=== PATIENT | female | born 1970 | race Caucasian/White ===

== ENCOUNTER 2019-08-17 19:49 | Emergency (ER) | payer OTHER ==
[2019-08-17 20:35] LABS: ABSOLUTE EOSINOPHILS # (AUTO) 0.2 10^3/uL (0.0-0.6); ABSOLUTE LYMPHOCYTES (AUTO) 3.3 10^3/uL (0.5-4.7); ABSOLUTE MONOCYTES (AUTO) 0.7 10^3/uL (0.1-1.4); ABSOLUTE NEUT (AUTO) 4.8 10^3/uL (1.7-8.2); BASOPHILS % (AUTO) 0.5 % (0-2); EOSINOPHILS % (AUTO) 2.3 % (0-6); HEMATOCRIT 39.8 % (36.0-47.0); HEMOGLOBIN 13.7 g/dL (12.0-15.5); LYMPHOCYTES % (AUTO) 36.7 % (13-45); MEAN CORPUSCULAR HEMOGLOBIN 33.5 pg (27.0-33.4); MEAN CORPUSCULAR HGB CONC 34.3 g/dL (32.0-36.0); MEAN CORPUSCULAR VOLUME 98 fl (80-97); MONOCYTES % (AUTO) 7.8 % (3-13); PLATELET COUNT 326 10^3/uL (150-450); RED BLOOD COUNT 4.07 10^6/uL (3.72-5.28); RED CELL DISTRIBUTION WIDTH 14.1 % (11.5-14.0); SEGMENTED NEUTROPHILS % (AUTO) 52.7 % (42-78); TOTAL CELLS COUNTED % (AUTO) 100 %; WHITE BLOOD COUNT 9.1 10^3/uL (4.0-10.5)
[2019-08-17 20:48] LABS: ALBUMIN 4.4 g/dL (3.5-5.0); ALCOHOL 97 mg/dL (NONE DETECTED); ALKALINE PHOSPHATASE 79 U/L (38-126); ANION GAP 12 (5-19); ASPARTATE AMINO TRANSFERASE 22 U/L (14-36); BILIRUBIN,TOTAL 0.2 mg/dL (0.2-1.3); BLOOD UREA NITROGEN 8 mg/dL (7-20); CALCIUM 9.8 mg/dL (8.4-10.2); CARBON DIOXIDE 17 mmol/L (22-30); CHLORIDE 116 mmol/L (98-107); GLUCOSE 123 mg/dL (75-110); POTASSIUM 3.9 mmol/L (3.6-5.0); TOTAL PROTEIN 7.3 g/dL (6.3-8.2)
[2019-08-17 20:49] LABS: APPEARANCE,URINE CLEAR; BILIRUBIN,URINE NEGATIVE (NEGATIVE); COLOR,URINE STRAW; GLUCOSE, URINE NEGATIVE (NEGATIVE); KETONES,URINE NEGATIVE (NEGATIVE); LEUKOCYTE ESTERASE,URINE NEGATIVE (NEGATIVE); NITRITE,URINE NEGATIVE (NEGATIVE); PROTEIN,URINE NEGATIVE (NEGATIVE); URINE SPECIFIC GRAVITY 1.005; UROBILINOGEN,URINE NEGATIVE mg/dL (<2.0)
[2019-08-17 20:50] LABS: ADD MANUAL MICROSCOPIC YES
[2019-08-17 20:50] LABS: ACETAMINOPHEN < 10 ug/mL (10-30); SALICYLATE < 1.0 mg/dL (2.0-20.0)
[2019-08-17] MEDS ORDERED: NORMAL SALINE 1000 ML 1,000 ML IV ONE ×2 (20:53→21:01)
[2019-08-17] MEDS ORDERED: ACETAMINOPHEN 325 MG TABLET PO ONE (21:01)
[2019-08-17] MEDS ORDERED: LORAZEPAM INJ 2 MG/1 ML VIAL IV ONE ×2 (21:01→22:10)
--- NOTE | 2019-08-17 21:03 | ER Document Report ---
ED Psych Disorder / Suicide <EMETERIO GRIFFIN - Last Filed: 08/18/19 09:04> - Related Data Home Medications: baclofen. robaxin. gabapentin. venlafaxine. ziprasidone. mirtazapine. iprasidone <IVANA DAVILA - Last Filed: 08/18/19 10:58> - General Chief Complaint: Overdose Stated Complaint: OVERDOSE Time Seen by Provider: 08/17/19 20:50 Notes: Patient is a 49-year-old female who presents to the emergency department for drug overdose. Patient states that she took 3 handfuls of baclofen. She also states that her boyfriend had left her and "took everything from me." Patient states that she took the baclofen to "get some help." She states that she wa nted to hurt herself. Denies any homicidal ideation. (IVANA DAVILA) - Related Data Allergies/Adverse Reactions: gluten Allergy (Verified 08/17/19 20:39) Past Medical History - Social History Smoking Status: Current Every Day Smoker Frequency of alcohol use: Occasional Family History: Reviewed & Not Pertinent Patient has homicidal ideation: No Psychiatric Medical History: Reports: Hx Bipolar Disorder, Hx Depression - anxiety <IVANA DAVILA - Last Filed: 08/18/19 10:58> Review of Systems <IVANA DAVILA - Last Filed: 08/18/19 10:58> - Review of Systems Notes: REVIEW OF SYSTEMS: CONSTITUTIONAL : Denies recent illness. Denies recent unintentional weight loss. Denies fever, chills, or sweats. EENT: Denies eye, ear, throat, or mouth pain, discharge, or symptoms. Denies nasal or sinus congestion. CARDIOVASCULAR: Denies chest pain. RESPIRATORY: Denies shortness of breath, cough, congestion, difficulty breathing, or wheezing. GASTROINTESTINAL: Denies nausea, vomiting, and diarrhea. Denies abdominal pain. Denies constipation. GENITOURINARY: Denies difficulty urinating, burning, blood in urine, urgency or frequency. MUSCULOSKELETAL: Denies neck and back pain. Denies joint pain or swelling. SKIN: Denies rash, itchiness, or lesions HEMATOLOGIC : Denies easy bruising or bleeding. LYMPHATIC: Denies swollen, painful, enlarged glands. NEUROLOGICAL: See HPI. PSYCHIATRIC: See HPI. All other systems reviewed and negative. (IVANA DAVILA) Physical Exam <IVANA DAVILA - Last Filed: 08/18/19 10:58> - Vital signs Vitals: Resp Pulse Ox 19 97 08/17/19 19:56 08/17/19 19:56 - Notes Notes: PHYSICAL EXAMINATION: GENERAL: Appears well, healthy, well-nourished, no acute distress. HEAD: Normocephalic, atraumatic. EYES: PERRL, conjunctiva normal, all extraocular movements intact, sclera nonicteric ENT: Moist mucous membranes. NECK: Supple, no noticeable swelling, redness, rash. Normal range of motion. LUNGS: Equal breath sounds bilaterally and clear to auscultation. No wheezes rales or rhonchi. CARDIOVASCULAR: S1-S2, regular rate, regular rhythm. Radial pulses 2+, normal. ABDOMEN: Normoactive bowel sounds. Soft, nontender, no guarding, no rebound tenderness, and no masses palpated. EXTREMITIES: Normal strength and range of motion, no pitting or edema. No cyanosis. NEUROLOGICAL: Moves all extremities upon command. Strength 5/5 in all extremities. PSYCH: Tearful. SKIN: Warm, dry. No rash, lesions, ulcerations noted. Normal skin turgor. (IVANA DAVILA) Course - Laboratory Result Diagrams: 08/17/19 20:11 08/18/19 06:58 <EMETERIO GRIFFIN - Last Filed: 08/18/19 09:04> - Laboratory Result Diagrams: 08/17/19 20:11 08/18/19 06:58 <IVANA DAVILA - Last Filed: 08/18/19 10:58> - Re-evaluation Re-evalutation: 08/18/19 09:04 Report received on the patient. Patient's drug screen is negative. Patient alcohol was 97 on arrival. Patient has been evaluated by psychiatric services who are planning on discharging the patient to the [facility] when she is medically cleared. (EMETERIO GRIFFIN) 08/18/19 Patient's hematology is unremarkable. No anemia or leukocytosis noted. Chemistries show a CO2 of 17. Patient received a liter of fluids. Will recheck labs in the morning. Patient has a large amount of blood in her urine, but she is currently on her menstrual cycle. Salicylates are negative, acetaminophen is negative, and urine drug screen is negative. Serum alcohol level was 97. At this time, the patient medically clear for mental health evaluation by Dr. Sheriff and staff. (IVANA DAVILA) - Vital Signs Vital signs: Temp Pulse Resp BP Pulse Ox 99.0 F 134 H 15 122/85 98 08/17/19 20:00 08/17/19 20:00 08/18/19 08:01 08/18/19 08:00 08/18/19 08:01 - Laboratory Laboratory results interpreted by me: 08/17/19 08/17/19 08/17/19 20:11 20:11 20:31 MCV 98 H MCH 33.5 H RDW 14.1 H Chloride 116 H Carbon Dioxide 17 L BUN Creatinine Glucose 123 H Calcium Urine Blood LARGE H Salicylates < 1.0 L Acetaminophen < 10 L 08/18/19 08/18/19 06:58 06:58 MCV MCH RDW Chloride 113 H Carbon Dioxide 21 L BUN 6 L Creatinine 0.42 L Glucose Calcium 8.3 L Urine Blood Salicylates Acetaminophen < 10 L Discharge <EMETERIO GRIFFIN - Last Filed: 08/18/19 09:04> <IVANA DAVILA - Last Filed: 08/18/19 10:58> - Discharge Clinical Impression: Suicidal ideation Drug overdose, intentional Qualifiers: Encounter type: initial encounter Qualified Code(s): T50.902A - Poisoning by unspecified drugs, medicaments and biological substances, intentional self-harm, initial encounter Condition: Stable Disposition: PSYCH HOSP/UNIT
[2019-08-17 21:07] LABS: URINE AMPHETAMINES SCREEN NEGATIVE; URINE BARBITURATES SCREEN NEGATIVE; URINE BENZODIAZEPINES SCREEN NEGATIVE; URINE COCAINE SCREEN NEGATIVE; URINE MARIJUANA (THC) SCREEN NEGATIVE; URINE METHADONE SCREEN NEGATIVE; URINE PHENCYCLIDINE SCREEN NEGATIVE
[2019-08-18 07:23] LABS: ANION GAP 5 (5-19); BLOOD UREA NITROGEN 6 mg/dL (7-20); CALCIUM 8.3 mg/dL (8.4-10.2); CARBON DIOXIDE 21 mmol/L (22-30); CHLORIDE 113 mmol/L (98-107); GLUCOSE 101 mg/dL (75-110); POTASSIUM 3.9 mmol/L (3.6-5.0)
[2019-08-18] MEDS ORDERED: NORMAL SALINE 1000 ML 1,000 ML IV ONE (07:24)
--- NOTE | 2019-08-18 11:10 | EKG REPORT ---
SEVERITY:- OTHERWISE NORMAL ECG - SINUS TACHYCARDIA : Confirmed by: Judie Ramos MD 18-Aug-2019 11:09:11
--- NOTE | 2019-08-18 11:48 | ER Document Report ---
Doctor's Note Notes: 08/18/19 08:05 Met with Patient who I had to awaken to conduct the evaluation. Patient reported her boyfriend left her yesterday and took everything she had to include her vehicle. Patient reported as a result, she took several handfuls of her baclofen in an attempt to end her life. Patient reported this is her first suicide attempt. She also explained she drank at least 6 beers which ended her 5 months of sobriety. Patient initially stated she had no one for support, no friends, no family, etc. but later stated she had 2 sons and a daughter living in [place] who were very supportive but did not know of the struggles she was experiencing. She could not advise if she felt better or whether she was still having thoughts of dying, however when asked "what happens from here?" Patient reported she would like to go back to [facility] to restart her rehabilitation and obtain further support. Patient reported she receives psychiatric care from [facility] but does not want counseling from [facility]. She requests counseling from another provider. Patient was mostly alert, but oriented to person, place, time,a nd circumstance. Mood was depressed and affect was flat. She was neutral on ongoing suicidal ideation, intent or plan, and denied homicidal ideation, intent or plan. She denied auditory/visual hallucinations and delusions were not present. Thought processes were logical, linear, and organized. Conversational speech was within normal limits for rate, tone, and prosody. Eye contact was poor. Intellectual abilities were estimated within the average range. Attention and concentration was within normal limits. Insight, judgment, nad impulse control was fair. Clinical Presentation Depressed Sad Hopeless Disappointed Alone Ashamed Impression/Plan: Patient acknowledges taking several handfuls of her Baclofen in an effort to kill herself. She denied throwing them when she was charcoled by EMS. She indicated she relapsed on alcohol after 5 months of sobriety. Though she could/would not answer whether she remained suicidal, she asked to return to [facility] to re-start her rehabilitation from Alcohol. This request in and of itself suggests she maintains forward thinking and desires to engage in healthy living. Will maintain her on IVC until she can be transferred to [facility] for ongoing care and treatment.
[2019-08-18] MEDS ORDERED: NICOTINE 7 MG/24 HR PATCH.TD24 TD ONE (11:52)
[2019-08-18 16:22] VITALS: BP 118/55
--- NOTE | 2019-08-19 17:58 | PSYCHOLOGICAL NOTE ---
Psych Note - Psych Note Date seen by psych provider: 08/18/19 Time seen by psych provider: 11:23 Psych Note: This clinician assisted with linkage and referral to [facility] for alcohol use. Spoke with patient to reiterate conversation she had with Dr. Ky bey who conducted evaluation. Patient stated she wanted help with alcohol use and they talked about [facility]. She gave verbal consent to make linkage/referral. At [id number] called and spoke to Abdirahman Cabrera ([phone]) Mobile Hand Clerical Verifier. Provided information. Then transferred the call to a mobile phone so patient could do phone screening. After the phone screening Abdirahman stated they would provide transportation and someone would be at [facility] between [id number].
== END 2019-08-18 16:24 | disposition home or self-care (01) ==
LOC: ER 19:49
DX: T42.8X2A Poisoning by antiparkinsonism drugs and other central muscle-tone depressants, intentional self-harm, initial encounter (principal); F10.129 Alcohol abuse with intoxication, unspecified; Y90.4 Blood alcohol level of 80-99 mg/100 ml; F41.9 Anxiety disorder, unspecified; F31.9 Bipolar disorder, unspecified; Z79.899 Other long term (current) drug therapy; Z63.0 Problems in relationship with spouse or partner; R31.9 Hematuria, unspecified; F17.200 Nicotine dependence, unspecified, uncomplicated; Z91.018 Allergy to other foods
CPT/HCPCS: 93005; 99284; 96361; 96374; 36415; 80307 ×4; 85025; 80048; 80053; 81001; 93010; J2060; J7030 ×2; J3490